=== PATIENT | male | born 1965 | race Caucasian/White ===

== ENCOUNTER 2021-01-29 11:23 | Outpatient (CLI) | payer OTHER, SELFPAY | END 2021-01-29 11:24 | disposition home or self-care (01) | LOC: ANHCOVIDVC 11:23 | PROVIDERS: PCP Family Medicine | DX: Z23 Encounter for immunization (principal) | CPT/HCPCS: 0001A; 91300 ==

== ENCOUNTER 2021-02-19 10:59 | Outpatient (CLI) | payer OTHER, SELFPAY | END 2021-02-19 11:00 | disposition home or self-care (01) | LOC: ANHCOVIDVC 10:59 | PROVIDERS: PCP Family Medicine | DX: Z23 Encounter for immunization (principal) | CPT/HCPCS: 0002A; 91300 ==

== ENCOUNTER → 2023-04-30 08:03 | Outpatient (CLI) | payer OTHER, SELFPAY ==
--- NOTE | ~2023-04-30 | US_ITS ---
EXAMINATION: US abdomen complete DATE: 04/30/2023 08:59 INDICATION: Left upper quadrant abdominal pain. TECHNIQUE: Multiple grayscale and Doppler ultrasound images of the abdomen were obtained. COMPARISON: None FINDINGS: The visualized portions of the head and body of the pancreas are normal. There is diffuse h epatic steatosis. There is no liver surface nodularity. The gallbladder is normal in size. No gallsto kristen or gallbladder wall thickening. There is no sonographic Dutta sign. The common duct is normal an d measures 4 mm. There is normal flow in main portal vein. The kidneys are normal in size. There are cysts in left kidney measuring up to 2.0 cm. The spleen is normal in size. Abdominal aorta is normal in caliber. Inferior vena cava is normal. IMPRESSION: 1. Diffuse hepatic steatosis. Reviewed, dictated and finalized at location A.
== END ==
PROVIDERS: PCP Family Medicine; Visit Provider Family Medicine
DX: R10.12 Left upper quadrant pain (principal); K76.0 Fatty (change of) liver, not elsewhere classified
CPT/HCPCS: 76700

== ENCOUNTER 2023-06-12 01:00 | Day surgery (SDC) | payer OTHER, SELFPAY ==
[2023-06-08 14:19] VITALS: BMI 33.7
--- NOTE | 2023-06-11 16:15 | PM.HPGS ---
History of Present Illness History of Present Illness Consent: Risks, benefits, and alternatives have been discussed and questions answered. Patient agrees to proceed with procedure. Chief complaint: Abdominal pain, hx colon polyps Narrative: Juan Khan is a 58 year old male Who was undergoing colonoscopy for screening. He did have an adenomatous polyp removed 6 years ago and had polyps prior to that as well. Review of Systems Review of Systems: All systems reviewed & are unremarkable except as noted in HPI and below PMFSH Past Medical History Medical History Abdominal pain Anxiety HTN (hypertension) Long-term insulin use OCD (obsessive compulsive disorder) PENNIE (obstructive sleep apnea) Type 2 diabetes mellitus with hyperglycemia Type 2 diabetes mellitus without complications Surgical History Surgical History Detached retina, left Family History Family History Mother Patient's mother is in good health Sibling Patient's sister is in good health Father Hypertension Family history of coronary artery disease Social History Social History Smoking status: Never smoker Second hand tobacco smoke exposure: No Alcohol intake: current Substance use: never Substance use type: does not use Living arrangements: with family Occupation/Education: occupation Gender identity (if verbalized by the patient): Male Spiritual care concerns: No Meds Home Medications and Allergies Home Medications Medication Instructions Recorded Confirmed Type fluoxetine 20 mg capsule 60 mg PO DAILY 10/12/19 06/12/23 History venlafaxine 75 mg tablet 75 mg PO BID 10/12/19 06/12/23 History dapagliflozin propanediol 10 mg 10 mg PO QAM #90 tabs 09/08/22 06/12/23 Rx tablet (Farxiga) lisinopril 40 mg tablet 40 mg PO DAILY #90 tabs 09/08/22 06/12/23 Rx pen needle, diabetic 31 gauge x #100 ea 10/21/22 06/12/23 Rx 5/16 (BD Ultra-Fine Short Pen Needle) Balance Of Nature Fruit 3 cap PO DAILY 06/08/23 06/12/23 History Balance Of Nature Veg. 3 cap PO DAILY 06/08/23 06/12/23 History Centrum Adults 1 cap PO DAILY 06/08/23 06/12/23 History H-Pylori Fight 1 cap PO DAILY 06/08/23 06/12/23 History insulin detemir U-100 100 unit/mL 30 unit subcut QAM 06/08/23 06/12/23 History (3 mL) subcutaneous pen (Levemir FlexPen) metformin 500 mg tablet,extended 2,000 mg PO QAM 06/08/23 06/12/23 History release 24 hr Allergies Allergy/AdvReac Type Severity Reaction Status Date / Time No Known Allergies Allergy Verified 06/12/23 10:40 Exam Resp: Auscultation: clear to auscultation bilaterally Cardio: Rate: regular rate Rhythm: regular rhythm GI: GI Palp: Yes Soft to palpation and No Tenderness to palpation present (GI) Assessment and Plan Assessment and plan (1) History of colon polyps: Code(s): Z86.010 - Personal history of colonic polyps Status: Acute (2) Colon cancer screening: Code(s): Z12.11 - Encounter for screening for malignant neoplasm of colon Status: Acute Assessment and Plan: Colonoscopy with possible biopsy or polypectomy or cautery or injection of substances.
[2023-06-12 10:42] VITALS: BP 150/93; PULSE 96; RESP 18; TEMP 36.2; O2SAT 98; BMI 32.8
[2023-06-12] MEDS: LACTATED RINGERS 1,000 ML 150 ML IV CONT (10:45)
[2023-06-12 10:59] LABS: Glucose Point of Care 169 mg/dl (65-105)
--- NOTE | 2023-06-12 11:12 | WPDANESEPPF ---
Anes - Initial Pre Proc Eval Procedure: Operation Date: 06/12/23 11:30 Proposed Procedures p Colonoscopy - Piotr Malone MD Date/Time: 06/12/23 11:12 Surgeon: Piotr Malone MD Pre Op Diagnosis: Abdominal pain, hx colon polyps Patient Data Age: 58 Gender: M Height: 1.78 m Weight: 103.9 kg Last Vital Signs Temp 97.1 F L 06/12/23 10:42 Pulse 96 06/12/23 10:42 Resp 18 06/12/23 10:42 BP 150/93 H 06/12/23 10:42 Pulse Ox 98 06/12/23 10:42 O2 Del Method Room Air 06/12/23 10:42 Allergies Allergy/AdvReac Type Severity Reaction Status Date / Time No Known Allergies Allergy Verified 06/12/23 10:40 Home Medications Medication Instructions Recorded Confirmed Type fluoxetine 20 mg capsule 60 mg PO DAILY 10/12/19 06/12/23 History venlafaxine 75 mg tablet 75 mg PO BID 10/12/19 06/12/23 History dapagliflozin propanediol 10 mg 10 mg PO QAM #90 tabs 09/08/22 06/12/23 Rx tablet (Farxiga) lisinopril 40 mg tablet 40 mg PO DAILY #90 tabs 09/08/22 06/12/23 Rx pen needle, diabetic 31 gauge x #100 ea 10/21/22 06/12/23 Rx 5/16 (BD Ultra-Fine Short Pen Needle) Balance Of Nature Fruit 3 cap PO DAILY 06/08/23 06/12/23 History Balance Of Nature Veg. 3 cap PO DAILY 06/08/23 06/12/23 History Centrum Adults 1 cap PO DAILY 06/08/23 06/12/23 History H-Pylori Fight 1 cap PO DAILY 06/08/23 06/12/23 History insulin detemir U-100 100 unit/mL 30 unit subcut QAM 06/08/23 06/12/23 History (3 mL) subcutaneous pen (Levemir FlexPen) metformin 500 mg tablet,extended 2,000 mg PO QAM 06/08/23 06/12/23 History release 24 hr Laboratory Tests 06/12/23 10:55 POC Capillary Glucose 169 H mg/dl (65-105) Patient hx anesthesia problems: none Family hx anesthesia problems: none Results Review: All pre-operative results and documents have been reviewed as part of the pre-operative evaluation. [facility] Past Medical History Medical History Abdominal pain Anxiety HTN (hypertension) Long-term insulin use OCD (obsessive compulsive disorder) PENNIE (obstructive sleep apnea) Type 2 diabetes mellitus with hyperglycemia Type 2 diabetes mellitus without complications Surgical History Surgical History Detached retina, left Family History Family History Mother Patient's mother is in good health Sibling Patient's sister is in good health Father Hypertension Family history of coronary artery disease Social History Social History Smoking status: Never smoker Second hand tobacco smoke exposure: No Alcohol intake: current Substance use: never Substance use type: does not use Living arrangements: with family Occupation/Education: occupation Gender identity (if verbalized by the patient): Male Spiritual care concerns: No Anes - Eval Final PreProcedure Day of Procedure 06/12/23 11:12 Patient weight: obese Heart: regular rate and rhythm Lungs: clear to auscultation Airway: Mallampati scale Neurological: alert and oriented Last oral intake: >/= 8 hours ASA classification: III Emergent: no Anesthetic plan: proceed Anesthesia type and monitoring: general GIVS and standard monitoring Results Review: All pre-operative results and documents have been reviewed as part of the pre-operative evaluation. Informed Consent: The patient's anesthetic plan and its attendant risks and benefits were discussed with the patient/family/POA. Questions were solicited and answers provided to the satisfaction of the patient/family/POA.
[2023-06-12 11:51] VITALS: BP 114/73; PULSE 77; RESP 19; O2SAT 96
[2023-06-12 12:01] VITALS: BP 121/81; PULSE 75; RESP 22; O2SAT 99
[2023-06-12 12:07] LABS: Glucose Point of Care 159 mg/dl (65-105)
[2023-06-12 12:11] VITALS: BP 125/78; PULSE 74; RESP 19; O2SAT 95
== END 2023-06-12 12:20 | disposition home or self-care (01) ==
PROVIDERS: PCP Family Medicine; Visit Provider Internal Medicine Gastroenterology
PROC: 0DJD8ZZ Inspection of Lower Intestinal Tract, Via Natural or Artificial Opening Endoscopic (ICD-10-PCS; CPT 45378; principal; 2023-06-12 11:30)
DX: I10 Essential (primary) hypertension (principal); Z12.11 Encounter for screening for malignant neoplasm of colon; Z86.010 Personal history of colon polyps; E11.9 Type 2 diabetes mellitus without complications; G47.33 Obstructive sleep apnea (adult) (pediatric); F42.8 Other obsessive-compulsive disorder; Z79.84 Long term (current) use of oral hypoglycemic drugs; Z79.4 Long term (current) use of insulin; E66.9 Obesity, unspecified; Z68.32 Body mass index [BMI] 32.0-32.9, adult
CPT/HCPCS: 45378; 82948; J2704; J7120

== ENCOUNTER 2023-08-15 11:56 | Outpatient (CLI) | payer OTHER, SELFPAY ==
[2023-08-15 12:10] LABS: Hematocrit 41.5 % (42.0-52.0); Mean Corpuscular HGB Conc 33.7 g/dl (32-36); Mean Corpuscular Hemoglobin 29.9 pg (26-34); Mean Corpuscular Volume 88.5 fl (80-100); Mean Platelet Volume 11.8 fl (7.4-10.4); Platelet Count Result 193 k/mm3 (150-375); Red Blood Count 4.69 M/mm3 (4.6-6.20); White Blood Count 9.4 K/mm3 (4.5-10.0)
[2023-08-15 12:22] LABS: Alanine Aminotransferase 30 U/L (6-50); Albumin Level 4.7 g/dL (3.5-5.1); Alkaline Phosphatase 47 U/L (38-126); Amylase 81 U/L (30-110); Anion Gap 9 mmol/L (8-16); Aspartate Amino Transferase 25 U/L (17-59); Blood Urea Nitrogen 19 mg/dL (9-20); Carbon Dioxide 25 mmol/L (22-30); Chloride 99 mmol/L (98-107); Estimated Glomerular Filt Rate > 60; Glucose 255 mg/dL (65-110); Lipase 284 U/L (23-300); Potassium 4.1 mmol/L (3.4-5.0); Sodium 133 mmol/L (137-145)
== END 2023-08-15 11:57 | disposition home or self-care (01) ==
LOC: ANHLAB 11:58
PROVIDERS: PCP Family Medicine; Visit Provider Nurse Practitioner Family
DX: R10.12 Left upper quadrant pain (principal)
CPT/HCPCS: 36415; 80053; 82150; 83690; 85027

== ENCOUNTER 2023-08-25 10:26 | Outpatient (CLI) | payer OTHER, SELFPAY ==
--- NOTE | ~2023-08-25 | XR_ITS ---
EXAMINATION: XR chest 2V 08/25/2023 10:45 INDICATION: Cough PROCEDURE: 2 view chest COMPARISON: No prior studies for comparison. FINDINGS: The lungs are clear. The cardiomediastinal silhouette is within normal limits. There are no pleural effusions. There is no pneumothorax suspected. IMPRESSION: 1: NO ACUTE CARDIOPULMONARY DISEASE. Reviewed, dictated and finalized at location L.
== END 2023-08-25 10:27 | disposition home or self-care (01) ==
LOC: ANHIMG 10:29
PROVIDERS: PCP Family Medicine; Visit Provider Family Medicine
DX: R05.9 Cough, unspecified (principal)
CPT/HCPCS: 71046

== ENCOUNTER → 2023-10-07 08:13 | Outpatient (CLI) | payer OTHER, SELFPAY ==
--- NOTE | ~2023-10-07 | CT_ITS ---
EXAMINATION: CT abdomen pelvis w con INDICATION: Left upper quadrant pain TECHNIQUE: Computed tomographic images of the abdomen and pelvis were obtained after the administrati on of 100 cc of Omnipaque 350 intravenous contrast. The dose-length product (DLP) was 1073.01 mGy-cm. Automated exposure control and iterative reconstruction technique were employed. COMPARISON: None available FINDINGS: Minimal dependent atelectasis is present in the lung bases. The heart size is normal. The l iver is diffusely low in attenuation when compared with the spleen, consistent with hepatic steatosis . A stone is present in the nondistended gallbladder. The spleen, pancreas, and adrenal glands are no rmal. Cysts of the left kidney measure up to 2.8 cm. The right kidney is unremarkable. No pathologica lly enlarged abdominal or pelvic lymph nodes are identified. No free intraperitoneal gas or evidence of bowel obstruction. A moderate volume of colonic stool is present. The appendix is normal. There is mild lumbar spondylosis. IMPRESSION: 1. No CT correlate for the patient's symptoms. 2. Diffuse hepatic steatosis. Reviewed, dictated and finalized at location F. [facility]
[2023-10-07 08:37] LABS: Estimated Glomerular Filt Rate > 60
== END ==
PROVIDERS: PCP Nurse Practitioner Family; Visit Provider Nurse Practitioner Family
DX: R10.12 Left upper quadrant pain (principal); K76.0 Fatty (change of) liver, not elsewhere classified
CPT/HCPCS: 74177; Q9967

== ENCOUNTER 2023-11-04 02:01 | Day surgery (SDC) | payer OTHER, SELFPAY ==
[2023-10-19 08:57] VITALS: BMI 35.4
--- NOTE | 2023-11-02 08:43 | SUR.PREOP ---
Patient called regarding upcoming procedure. Message left on pt'[s voicemail regarding appointment times.
--- NOTE | 2023-11-04 10:54 | PM.HPGS ---
History of Present Illness History of Present Illness Consent: Risks, benefits, and alternatives have been discussed and questions answered. Patient agrees to proceed with procedure. Chief complaint: History of Colon Polyps Narrative: Juan Khan is a 58 year old male Referred for colon cancer screening. he has a history of colon polyps. We attempted colonoscopy earlier this year but the prep was suboptimal. Review of Systems Review of Systems: All systems reviewed & are unremarkable except as noted in HPI and below PMFSH Past Medical History Medical History Abdominal pain Anxiety HTN (hypertension) Long-term insulin use OCD (obsessive compulsive disorder) PENNIE (obstructive sleep apnea) Type 2 diabetes mellitus with hyperglycemia Type 2 diabetes mellitus without complications Surgical History Surgical History Detached retina, left Family History Family History Mother Patient's mother is in good health Sibling Patient's sister is in good health Father Hypertension Family history of coronary artery disease Social History Social History Smoking status: Never smoker Second hand tobacco smoke exposure: No Alcohol intake: current Substance use: never Substance use type: does not use Living arrangements: alone Occupation/Education: occupation Gender identity (if verbalized by the patient): Male Spiritual care concerns: No Meds Home Medications and Allergies Home Medications Medication Instructions Recorded Confirmed Type fluoxetine 20 mg capsule 60 mg PO DAILY 10/12/19 10/19/23 History venlafaxine 75 mg tablet 75 mg PO BID 10/12/19 10/19/23 History pen needle, diabetic 31 gauge x #100 ea 10/21/22 10/19/23 Rx 5/16 (BD Ultra-Fine Short Pen Needle) Balance Of Nature Fruit 3 cap PO DAILY 06/08/23 10/19/23 History Balance Of Nature Veg. 3 cap PO DAILY 06/08/23 10/19/23 History Centrum Adults 1 cap PO DAILY 06/08/23 10/19/23 History insulin detemir U-100 100 unit/mL 30 unit subcut QAM 06/08/23 10/19/23 History (3 mL) subcutaneous pen (Levemir FlexPen) dapagliflozin propanediol 10 mg 10 mg PO QAM #90 tabs 09/04/23 10/19/23 Rx tablet (Farxiga) lisinopril 40 mg tablet 40 mg PO DAILY #90 tabs 09/04/23 10/19/23 Rx metformin 500 mg tablet,extended 2,000 mg PO QPM #360 tabs 09/04/23 10/19/23 Rx release 24 hr Allergies Allergy/AdvReac Type Severity Reaction Status Date / Time No Known Allergies Allergy Verified 10/19/23 08:41 Exam Resp: Auscultation: clear to auscultation bilaterally Cardio: Rate: regular rate Rhythm: regular rhythm GI: GI Palp: Yes Soft to palpation and No Tenderness to palpation present (GI) Assessment and Plan Assessment and plan (1) Colon cancer screening: Code(s): Z12.11 - Encounter for screening for malignant neoplasm of colon Status: Acute Assessment and Plan: Colonoscopy with possible biopsy or polypectomy or cautery or injection of substances.
[2023-11-04 11:08] VITALS: BP 129/84; PULSE 96; RESP 18; TEMP 36.9; O2SAT 98; BMI 34.2
[2023-11-04 11:43] LABS: Glucose Point of Care 158 mg/dl (65-105)
[2023-11-04] MEDS: LACTATED RINGERS 1,000 ML 150 ML IV CONT (11:46)
--- NOTE | 2023-11-04 11:47 | WPDANESEPPF ---
Anes - Initial Pre Proc Eval Procedure: Operation Date: 11/04/23 12:30 Proposed Procedures p Colonoscopy - Piotr Malone MD Date/Time: 11/04/23 11:47 Surgeon: Piotr Malone MD Pre Op Diagnosis: History of Colon Polyps Patient Data Age: 58 Gender: M Height: 1.75 m Weight: 105.1 kg Last Vital Signs Temp 36.9 C 11/04/23 11:08 Pulse 96 11/04/23 11:08 Resp 18 11/04/23 11:08 BP 129/84 11/04/23 11:08 Pulse Ox 98 11/04/23 11:08 O2 Del Method Room Air 11/04/23 11:08 Allergies Allergy/AdvReac Type Severity Reaction Status Date / Time No Known Allergies Allergy Verified 10/19/23 08:41 Home Medications Medication Instructions Recorded Confirmed Type fluoxetine 20 mg capsule 60 mg PO DAILY 10/12/19 10/19/23 History venlafaxine 75 mg tablet 75 mg PO BID 10/12/19 10/19/23 History pen needle, diabetic 31 gauge x #100 ea 10/21/22 10/19/23 Rx 5/16 (BD Ultra-Fine Short Pen Needle) Balance Of Nature Fruit 3 cap PO DAILY 06/08/23 10/19/23 History Balance Of Nature Veg. 3 cap PO DAILY 06/08/23 10/19/23 History Centrum Adults 1 cap PO DAILY 06/08/23 10/19/23 History insulin detemir U-100 100 unit/mL 30 unit subcut QAM 06/08/23 10/19/23 History (3 mL) subcutaneous pen (Levemir FlexPen) dapagliflozin propanediol 10 mg 10 mg PO QAM #90 tabs 09/04/23 10/19/23 Rx tablet (Farxiga) lisinopril 40 mg tablet 40 mg PO DAILY #90 tabs 09/04/23 10/19/23 Rx metformin 500 mg tablet,extended 2,000 mg PO QPM #360 tabs 09/04/23 10/19/23 Rx release 24 hr Laboratory Tests 11/04/23 11:41 POC Capillary Glucose 158 H mg/dl (65-105) Patient hx anesthesia problems: none Family hx anesthesia problems: none Results Review: All pre-operative results and documents have been reviewed as part of the pre-operative evaluation. [facility] Past Medical History Medical History Abdominal pain Anxiety HTN (hypertension) Long-term insulin use OCD (obsessive compulsive disorder) PENNIE (obstructive sleep apnea) Type 2 diabetes mellitus with hyperglycemia Type 2 diabetes mellitus without complications Surgical History Surgical History Detached retina, left Family History Family History Mother Patient's mother is in good health Sibling Patient's sister is in good health Father Hypertension Family history of coronary artery disease Social History Social History Smoking status: Never smoker Second hand tobacco smoke exposure: No Alcohol intake: current Substance use: never Substance use type: does not use Living arrangements: alone Occupation/Education: occupation Gender identity (if verbalized by the patient): Male Spiritual care concerns: No Anes - Eval Final PreProcedure Day of Procedure 11/04/23 11:47 Patient weight: obese Heart: regular rate and rhythm Lungs: clear to auscultation Airway: Mallampati scale class II Neurological: alert and oriented Last oral intake: >/= 8 hours ASA classification: III Emergent: no Anesthetic plan: proceed Anesthesia type and monitoring: general GIVS and standard monitoring Results Review: All pre-operative results and documents have been reviewed as part of the pre-operative evaluation. Informed Consent: The patient's anesthetic plan and its attendant risks and benefits were discussed with the patient/family/POA. Questions were solicited and answers provided to the satisfaction of the patient/family/POA.
[2023-11-04] MEDS: SIMETHICONE ORAL SUSPENSION 20 MG/0.3 ML 30 ML BOTTLE 0.6 ML IRRIGATION (12:19)
[2023-11-04 12:24] VITALS: BP 85/46; PULSE 95; RESP 22; O2SAT 97
[2023-11-04 12:34] VITALS: BP 103/66; PULSE 81; RESP 19; O2SAT 96
[2023-11-04 12:44] VITALS: BP 107/69; PULSE 80; RESP 20; O2SAT 97
== END 2023-11-04 12:59 | disposition home or self-care (01) ==
PROVIDERS: PCP Family Medicine; Visit Provider Internal Medicine Gastroenterology
PROC: 0DJD8ZZ Inspection of Lower Intestinal Tract, Via Natural or Artificial Opening Endoscopic (ICD-10-PCS; CPT 45378; principal; 2023-11-04 12:30)
DX: Z09 Encounter for follow-up examination after completed treatment for conditions other than malignant neoplasm (principal); Z86.010 Personal history of colon polyps; I10 Essential (primary) hypertension; E11.9 Type 2 diabetes mellitus without complications; G47.33 Obstructive sleep apnea (adult) (pediatric); F42.8 Other obsessive-compulsive disorder; F41.9 Anxiety disorder, unspecified; Z79.4 Long term (current) use of insulin; Z79.84 Long term (current) use of oral hypoglycemic drugs; E66.9 Obesity, unspecified; Z68.34 Body mass index [BMI] 34.0-34.9, adult
CPT/HCPCS: 45378; 82948; J2704; J7120

== ENCOUNTER 2024-01-11 10:39 | Outpatient (CLI) | payer OTHER, SELFPAY | END 2024-01-11 10:40 | disposition home or self-care (01) | LOC: ANHAUDASC 10:40 | PROVIDERS: PCP Family Medicine; Visit Provider Otolaryngology | DX: H90.3 Sensorineural hearing loss, bilateral (principal) | CPT/HCPCS: 92557; 92567 ==

== ENCOUNTER 2025-03-08 09:28 | Outpatient (CLI) | payer OTHER, SELFPAY ==
--- NOTE | ~2025-03-08 | XR_ITS ---
Clinical Indication: Cough PA and lateral views of the chest: Comparison: 08/25/2023 Findings: The lungs are clear, without evidence of focal consolidation or pleural effusion. Cardiome diastinal silhouette is within normal limits. Bones and soft tissues are unremarkable. Impression: Normal chest. Reviewed, dictated and finalized at location . Impression: Normal chest.
== END 2025-03-08 09:29 | disposition home or self-care (01) ==
LOC: MICIMG 09:30
PROVIDERS: PCP Family Medicine; Visit Provider Family Medicine
DX: R05.9 Cough, unspecified (principal)
CPT/HCPCS: 71046